=== PATIENT | male | born 2000 | race Caucasian/White ===

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

== ENCOUNTER 2024-03-11 12:07 | Emergency (ER) | payer OTHER, SELFPAY ==
[2024-03-11 12:30] VITALS: BP 136/87; PULSE 73; RESP 20; TEMP 36.6; O2SAT 100
[2024-03-11 13:43] LABS: EDSTREPNEGPOS1 Negative (Negative)
--- NOTE | 2024-03-11 14:11 | ED_ITS ---
HPI - General Adult General Chief complaint: Upper Respiratory Infection Stated complaint: Sore Throat/Ear Problem Source: patient Mode of arrival: ambulatory Limitations: no limitations History of Present Illness HPI narrative: Patient presents for evaluation of sore throat for the last week. Reports fever. Denies any chills otalgia, cough, shortness of breath, nausea, vomiting, diarrhea. No recent sick contacts to his knowledge. He does not smoke. He is not taking any medication [id number] to assist with the symptoms. Related Data Allergies Allergy/AdvReac Type Severity Reaction Status Date / Time No Known Allergies Allergy Verified 03/11/24 12:55 Review of Systems Review of Systems: CONSTITUTIONAL: Reports fever. Denies chills, or sweats. EYES: Denies visual changes, redness, or discharge. ENT: Reports sore throat. Denies rhinorrhea, congestion, or otalgia. CARDIOVASCULAR: Denies chest pain, palpitations, or edema. RESPIRATORY: Denies cough or dyspnea. GASTROINTESTINAL: Denies abdominal pain, nausea, vomiting, or diarrhea. GENITOURINARY: Denies dysuria or hematuria. SKIN: Denies rash or itching. MUSCULOSKELETAL: Denies back pain, joint pain, or myalgia. NEUROLOGIC: Denies headache, numbness, dizziness, or weakness. PSYCHIATRIC: Denies anxiety or depression. PMFSH Past Medical History Medical History No pertinent past medical history Surgical History Surgical History No pertinent past surgical history Family History Family History Mother Family history non-contributory Social History Social History Smoking status: Never smoker Substance use: never Living arrangements: with family Gender identity (if verbalized by the patient): Male Spiritual care concerns: No Exam Narrative: GENERAL: Well-appearing, well-nourished, and in no acute distress. HEAD: Normocephalic, atraumatic. EYES: PERRLA and EOMI. ENT: Nares clear, no rhinorrhea or epistaxis. Mucous membranes moist. There is posterior pharyngeal erythema. Bilateral tympanic membranes are erythematous and bulging NECK: Supple. No adenopathy or masses. No carotid bruits or JVD CHEST: Clear to auscultation. No respiratory distress. No wheezes rales or rhonchi HEART: Regular rate and rhythm. No murmur heard. Normal peripheral pulses. ABDOMEN: Soft, nontender, nondistended, normal active bowel sounds. EXTREMITIES: Normal range of motion. No edema. SKIN: Warm, dry, no rash. NEURO: No focal deficits. Alert and oriented x3. PSYCH: Normal mood and affect. Course Course Emergency Course: This is a 23-year-old male who presented for evaluation of sore throat. Rapid strep negative. Will send throat culture. He has evidence of otitis media. Will treat with Augmentin. Increase hydration. [id number] agents for symptom management. Follow up with primary provider. Go to the ER for worsening symptoms. Patient in agreement with care plan Level of Care: Express Care Visit Vital Signs Vital signs: Vital Signs Temperature 36.6 C 03/11/24 12:30 Pulse Rate 73 03/11/24 12:30 Respiratory Rate 20 03/11/24 12:30 Blood Pressure 136/87 03/11/24 12:30 Pulse Oximetry 100 03/11/24 12:30 Oxygen Delivery Room Air 03/11/24 12:30 Temperature 36.6 C 03/11/24 12:30 Pulse Rate 73 03/11/24 12:30 Respiratory Rate 20 03/11/24 12:30 Blood Pressure 136/87 03/11/24 12:30 Pulse Oximetry 100 03/11/24 12:30 Oxygen Delivery Room Air 03/11/24 12:30 Medical Decision Making Vital Signs Vital Signs: Vital Signs Temperature 36.6 C 03/11/24 12:30 Pulse Rate 73 03/11/24 12:30 Respiratory Rate 20 03/11/24 12:30 Blood Pressure 136/87 03/11/24 12:30 Pulse Oximetry 100 03/11/24 12:30 Oxygen Delivery Room Air 03/11/24 12:30 Temperature 36.6 C 03/11/24 12:30 Pulse Rate 73 03/11/24 12:30 Respiratory Rate 20 03/11/24 12:30 Blood Pressure 136/87 12/31/24 12:30 Pulse Oximetry 100 03/11/24 12:30 Oxygen Delivery Room Air 03/11/24 12:30 Lab Data Labs: Lab Results 03/11/24 Range/Units 12:45 POC Grp A Strep Screen Negative (Negative) Discharge Plan Discharge Clinical Impression: Pharyngitis, Otitis media Patient Disposition: Home, Self-Care Condition: Stable Instructions: Antibiotic Form, Pharyngitis (ED), Ear Infection (GEN) Patient Language: [place] Prescriptions: New amoxicillin-pot clavulanate 875-125 mg tablet 1 tablet PO Q12H Qty: 20 0RF Follow-up/Referrals: Norman Hein MD [Physician] - Time of Disposition: 13:56
== END 2024-03-11 13:58 | disposition home or self-care (01) ==
PROVIDERS: Emergency Provider Nurse Practitioner
DX: J02.9 Acute pharyngitis, unspecified (principal); H66.93 Otitis media, unspecified, bilateral
CPT/HCPCS: 87081; 87880; 99213; G0463